=== PATIENT | female | born 1945 | race Caucasian/White ===

== ENCOUNTER 2018-01-07 11:59 | Emergency (ER) | payer OTHER ==
[~2018-01-07 11:59] MED LIST: CLON.1 PO; ESTR1 PO; IBUP600T26 PO; LEVO100T4 PO; LISI-593 PO; MAXZ25 PO; POTA10IN2 PO; PROP80CA PO; PROP80TA PO; ROBA750T3 PO
[2018-01-07 12:40] VITALS: BP 122/81; PULSE 93; RESP 18; TEMP 98.5; O2SAT 98
[2018-01-07] MEDS ORDERED: METF500T PO (13:48)
--- NOTE | 2018-01-07 13:48 | RADRPT ---
EXAM DATE/TIME: 01/07/2018 12:59 [place] COMPARISON: None. INDICATIONS : <<Right posterior rib pain since falling today.>> MEDICAL HISTORY : Hypertension. SURGICAL HISTORY : Hysterectomy. ENCOUNTER: Initial ACUITY: 1 day PAIN SCORE: 7/10 LOCATION: Right posterior ribs. FINDINGS: PA and lateral views of the chest demonstrate the lungs to be symmetrically aerated without evidence of mass, infiltrate or effusion. The cardiomediastinal contours are unremarkable. Osseous structure s are intact. CONCLUSION: No acute disease. Domiinc Camejo MD on January 07, 2018 at 13:45 Board Certified Radiologist. This report was verified electronically.
[2018-01-07] MEDS ORDERED: TRAM50 PO (14:16)
--- NOTE | 2018-01-07 14:16 | PD ---
HPI Chief Complaint: Fall Time Seen by Provider: 13:36 Travel History International Travel<30 days: No Contact w/Intl Traveler<30days: No Traveled to known affect area: No History of Present Illness HPI This is a 72-year-old female here with right lateral rib pain after she had a mechanical trip and fall from a standing position prior to arrival. She reports she asked her balance when attempting to move a shopping cart causing her to fall to the ground on her right side injuring her ribs on bottom portion of a shopping cart. She denies head injury or loss of consciousness. She remembers the event. Her sister witnessed fall. She denies any other injuries. She denies headache, visual changes, neck pain, chest pain, shortness of breath, abdominal pain, paresthesia or weakness of the extremities. Pain in the ribs is worse with twisting and palpation of the area. Symptom severity is moderate. PFSH Past Medical History Arthritis: Yes (IN LOWER BACK) Congestive Heart Failure: Yes Diabetes: Yes Hypertension: Yes Thyroid Disease: Yes Past Surgical History Cholecystectomy: Yes Hysterectomy: Yes Tonsillectomy: Yes Other Surgery: Yes (THYROIDECTOMY) Social History Alcohol Use: No Tobacco Use: No Substance Use: No Allergies-Medications (Allergen,Severity, Reaction): Coded Allergies: methylprednisolone (Unverified Allergy, Mild, IV ONLY-WARM FEELING, ) Reported Meds & Prescriptions Reported Meds & Active Scripts Active Reported Metformin (Metformin HCl) 500 Mg Tab 500 Mg PO BIDPC Zestril 40 mg (Lisinopril) 40 Mg Tab 40 Mg PO DAILY Maxzide 37.5/25 Tab (Triamterene/HCTZ) 1 Tab Tab 1 Tab PO DAILY Levothyroxine 100 mcg (Levothyroxine Sodium) 100 Mcg Tab 100 Mcg PO DAILY Potassium Chloride 10 Meq Cap 1 Cap PO DAILY Review of Systems Except as stated in HPI: all other systems reviewed are Neg Physical Exam Narrative GENERAL: Alert and well-appearing 72-year-old female SKIN: Warm and dry. HEAD: Normocephalic. EYES: Pupils equal, round, reactive to light. EOMs intact. NECK: Supple, trachea midline. No cervical midline tenderness CARDIOVASCULAR: Regular rate and rhythm. Murmur appreciated. RESPIRATORY: Breath sounds equal bilaterally. No accessory muscle use. Even equal chest rise.+TTP right lateral ribs. No crepitus or palpable fracture. Faint area of ecchymosis GASTROINTESTINAL: Abdomen soft, non-tender, nondistended. MUSCULOSKELETAL: No cyanosis, or edema. No bony point tenderness BACK: Nontender cervical, thoracic, lumbar spine. No CVA tenderness. Data Data Last Documented VS Vital Signs Date Time Temp Pulse Resp B/P (MAP) Pulse Ox O2 Delivery O2 Flow Rate FiO2 01/07/18 12:40 98.5 93 18 122/81 (95) 98 Orders Orders Chest, Pa & Lat (01/07/18 ) MDM Medical Decision Making Medical Screen Exam Complete: Yes Emergency Medical Condition: Yes Differential Diagnosis Rib fracture, pneumothorax, chest wall contusion Narrative Course 72-year-old female with injury to the right lateral ribs. She is well- appearing. X-ray is negative for fracture or pneumothorax. Physical exam is reassuring she has no other signs of trauma. Symptomatic treatment of rib contusions discussed with patient. Strict return precautions were discussed. Patient verbalizes understanding and agrees to plan Diagnosis Primary Impression: Rib contusion Qualified Codes: S20.211A - Contusion of right front wall of thorax, initial encounter Referrals: Primary Care Physician Additional Instructions: Pain medication as needed. Avoid heavy lifting or strenuous activity. Follow-up with her primary doctor. Return to emergency department if he developed new or worsening symptoms. Scripts Tramadol (Ultram) 50 Mg Tab 50 MG PO Q6H Y for PAIN, #12 TAB 0 Refills Prov: Madeleine Riley 01/07/18 Disposition: 01 DISCHARGE HOME Condition: Stable Madeleine Riley Jan 07, 2018 14:16
== END 2018-01-07 14:27 | disposition home or self-care (01) ==
LOC: NEPK 11:59
DX: S20.211A Contusion of right front wall of thorax, initial encounter (principal); W01.0XXA Fall on same level from slipping, tripping and stumbling without subsequent striking against object, initial encounter; Y93.89 Activity, other specified
CPT/HCPCS: 71046; 99283